=== PATIENT | male | born 1965 | race Caucasian/White ===

== ENCOUNTER 2016-12-05 04:15 | Observation (INO) | payer BC ==
--- NOTE | 2016-12-05 04:25 | Emergency Department Record ---
History of Present Illness - General Chief Complaint: Chest Pain Stated Complaint: chest pain Time Seen by Provider: 12/05/16 04:23 Source: Patient Mode of Arrival: Ambulatory Limitations: No limitations - History of Present Illness Initial Comments: The patient is here due to a 6 hour hx of chest discomfort. The patient describes it as a L chest sharp stabbing pain that lasts seconds and occurs every 10 minutes or so. There is no JAMES, SOB, sweating, or nausea with the pain. He has been having very mild pain over the last 2 weeks and does have a stress test scheduled tomorrow with Dr. Weldon in [place]. He denies any cardiac hx but does have risk factors of HTN and a strong family hx of CAD. MD Complaint: Chest pain Onset/Timin -: Hour(s) Onset: During rest Pain Location: Left chest Pain Radiation: None Severity: Mild Severity scale (1-10): 2 Quality: Sharp Consistency: Intermittent - Related Data Home Medications Medication Instructions Recorded Confirmed Last Taken Amlodipine Besylate/Benazepril 1 each PO DAILY 12/05/16 12/05/16 1 Day Ago [Amlodipine-Benazepril 5-20 mg] Aspirin [Adult Low Dose Aspirin EC] 81 mg PO DAILY 12/05/16 12/05/16 1 Day Ago Atorvastatin Calcium [Lipitor] 20 mg PO DAILY 12/05/16 12/05/16 1 Day Ago Allergies Allergy/AdvReac Type Severity Reaction Status Date / Time No Known Drug Allergies Allergy Verified 12/05/16 04:28 Review of Systems Constitutional: Denies: Chills, Fever Eyes: Denies: Eye discharge ENT: Denies: Congestion Respiratory: Denies: Cough, Dyspnea Cardiovascular: Reports: Chest pain. Denies: Arrhythmia Endocrine: Denies: Fatigue Gastrointestinal: Denies: Diarrhea, Vomiting Genitourinary: Denies: Dysuria Musculoskeletal: Denies: Arthralgia Skin: Denies: Bruising Past Medical History - SOCIAL HISTORY Smoking Status: Never smoker Alcohol Use: None Drug Use: None - RESPIRATORY Hx Respiratory Disorders: No - CARDIOVASCULAR Hx Cardio Disorders: Yes Hx Hypertension: Yes - NEURO Hx Neuro Disorders: No Physical Exam - General General Appearance: Alert, Oriented x3, Cooperative, No acute distress - Head Head exam: Atraumatic, Normocephalic, Normal inspection - Eye Eye exam: Normal appearance, PERRL - ENT Throat exam: Normal inspection. negative: Tonsillar erythema, Tonsillar exudate - Neck Neck exam: Normal inspection, Full ROM. negative: Tenderness - Respiratory Respiratory exam: Normal lung sounds bilaterally. negative: Respiratory distress - Cardiovascular Cardiovascular Exam: Regular rate, Normal rhythm, Normal heart sounds - GI/Abdominal GI/Abdominal exam: Soft, Normal bowel sounds. negative: Tenderness - Extremities Extremities exam: Normal inspection, Full ROM, Normal capillary refill. negative: Tenderness - Neurological Neurological exam: Alert, Normal gait. negative: Abnormal gait, Motor sensory deficit - Psychiatric Psychiatric exam: negative: Anxious, Depressed Course - Reevaluation(s) Reevaluation #1: The patient is doing well. He denies any pain or discomfort at this time. I explained to him that his tests do appear normal but due to his risk factors I do recommend hospital admission and he agrees. We will admit the patient to the hospital here overnight and obtain a cardiology consult tomorrow. 12/05/16 05:55 Medical Decision Making - Data Complexity MDM Data: Labs Ordered and/or Reviewed, X-Ray Ordered and/or Reviewed (CXR: Poor inspiration, O/W neg.), EKG Ordered and/or Reviewed - Lab Data Result diagrams: 12/05/16 04:35 12/05/16 04:35 - EKG Data -: EKG Interpreted by Me EKG: No Acute Changes, Normal EKG Disposition Disposition: Admit Clinical Impression: Chest Pain at Rest Disposition: Still a Patient at [facility] Decision to Admit: Admit from ER Decision to Admit Date: 12/05/16 Decision to Admit Time: 05:56 Accepting Physician: Christel Time Discussed w/Accepting Physician: 05:56 Condition: (2) Stable Time of Disposition: 05:56
[2016-12-05] MEDS ORDERED: ASPIRIN 325 MG TABLET PO ONE (04:38)
[2016-12-05 04:49] LABS: BASO % 0.3 % (0-6); EOS % 1.4 % (0-6); GRAN % 56.2 % (47-80); HEMATOCRIT 44.8 % (42.0-52.0); HEMOGLOBIN 15.3 gm/dl (14.0-18.0); LYMPH % 32.7 % (16-45); MEAN CELL VOLUME 89.8 fl (81-97); MEAN CORPUSCULAR HEMOGLOBIN 30.7 pg (27-33); MEAN CORPUSCULAR HGB CONC 34.2 g/dl (32-36); MEAN PLATELET VOLUME 10.5 fl (7.4-10.4); MONO % 9.4 % (0-9); PLATELET COUNT 297 K/uL (130-400); RED BLOOD COUNT 4.99 M/uL (4.40-5.70); RED CELL DISTRIBUTION WIDTH 12.5 % (11.5-14.5); WHITE BLOOD COUNT W/O DIFF 10.1 K/uL (4.2-12.2)
[2016-12-05 05:04] LABS: ANION GAP 14.7 (7-16); BLOOD UREA NITROGEN 14 mg/dL (9-20); CARBON DIOXIDE 22.3 mmol/L (22-30); CREATINE PHOSPHOKINASE 51 U/L (55-170); CREATININE 0.9 mg/dL (0.66-1.25); EST GLOMERULAR FILTRATION RATE > 60 ml/min; GLUCOSE,RANDOM 106 mg/dL (70-110); INR 0.92; PARTIAL THROMBOPLASTIN TIME 28.4 SECONDS (24.5-39.1); PROTHROMBIN TIME (PATIENT) 10.4 SECONDS (9.5-12.1)
[2016-12-05 05:16] LABS: CKMB 0.5 ug/L (0-6)
[2016-12-05 05:19] LABS: TROPONIN I < 0.012 ng/mL (0.00-0.034)
[2016-12-05] MEDS ORDERED: NITROGLYCERIN 0.4MG SL TABLET #25 BTL SL PRN (06:39)
[2016-12-05] MEDS ORDERED: ACETAMINOPHEN 500 MG TABLET PO PRN (06:39)
--- NOTE | 2016-12-05 07:07 | History & Physical ---
History of Present Illness - Date of Service Date of Service for History & Physical: 12/05/16 - History of Present Illness Admitting Diagnosis: 1. Chest Pain, R/O SD. History of Present Illness: 51 yo male admitted with CC of chest pain. pmhx of HTN, high cholesterol and obesity. chest pain on and off for 2 weeks. described as sharp. location is substeral and epigastric. associated symptoms include belching, acid reflux and bloating. upon presentation, VS's relatively stable. CBC/CMP normal. CE negative x 2. EKG interpreted by ED physician: No acute changes, normal EKG. CXR: poor inspiration, o/w negative. Patient placed on telemetry and admitted for further observation. Patient reports episodes of dizziness two years ago leading to cardiac work up. He follows with Dr. Duque, a [employer] out of [place], [place]. Patient had an abnormal stress test during this work up. I spoke with Dr. Duque's mid level, who states that these abnormalities are being medically managed. Patient has an outpatient stress test with Dr. Duque scheduled for 10 am tomorrow morning. He denies any SOB, cough, diaphoresis, change in bowel or bladder function, weakness, confusion, headache, arm/neck pain, odynophagia or dysphagia. he's never seen a GI doctor. He does not take any gastrointestinal medications. Significant family cardiac history- father w/ SD in his 40's, brother w/ SD in his 50's. Patient with risk factors of HTN, high cholesterol, family history, and obesity. PCP: Jay Jay Daniels, P.A-C Travel Screening - Travel/Exposure Within Last 30 Days Have you traveled within the last 30 days?: No - Travel/Exposure Within Last Year Have you traveled outside the [place] in the last year?: No - Additonal Travel Details Have you been exposed to anyone with a communicable illness?: No - Travel Symptoms Symptom Screening: None Review of Systems Constitutional: Denies: Chills, Fever Eyes: Denies: Eye discharge ENT: Denies: Congestion Respiratory: Denies: Cough, Dyspnea, Wheezes Cardiovascular: Denies: Arrhythmia, Chest pain, Edema Endocrine: Denies: Fatigue Gastrointestinal: Denies: Diarrhea, Vomiting Genitourinary: Denies: Dysuria Musculoskeletal: Denies: Arthralgia Skin: Denies: Bruising Past Medical History - SOCIAL HISTORY Smoking Status: Never smoker Alcohol Use: None Drug Use: None - RESPIRATORY Hx Respiratory Disorders: No - CARDIOVASCULAR Hx Cardio Disorders: Yes Hx Hypertension: Yes - NEURO Hx Neuro Disorders: No - GI Hx Reflux: Yes Comment:: abnormal gas - Hx Genitourinary Disorders: No - ENDOCRINE Hx Diabetes: No Hx Thyroid Disease: No - MUSCULOSKELETAL Hx Musculoskeletal Disorders: No - PSYCH Hx Psych Problems: No - HEMATOLOGY/ONCOLOGY Hx Hematology/Oncology Disorders: No Family Medical History Any Significant Family History?: Yes Hx Heart Disease: Father, Brother/Sister H&P Meds/Allergies - Allergies Allergies: Allergies Allergy/AdvReac Type Severity Reaction Status Date / Time No Known Drug Allergies Allergy Verified 12/05/16 04:28 - Home Medications Home Medications Medication Instructions Recorded Confirmed Last Taken Amlodipine Besylate/Benazepril 1 each PO DAILY 12/05/16 12/05/16 1 Day Ago [Amlodipine-Benazepril 5-20 mg] Aspirin [Adult Low Dose Aspirin EC] 81 mg PO QHS 12/05/16 12/05/16 1 Day Ago Atorvastatin Calcium [Lipitor] 20 mg PO QHS 12/05/16 12/05/16 1 Day Ago - Active Medications Active Medications: Current Medications Acetaminophen (Tylenol 500mg Tab) 500 mg PO Q6H PRN PRN Reason: PAIN/TEMP Aspirin (Ecotrin (Ec)) 325 mg PO DAILY TRINO Atorvastatin Calcium (Lipitor) 20 mg PO DAILY [facility] Nitroglycerin (Nitrostat 0.4mg) 0.4 mg SL Q5MIN PRN PRN Reason: CHEST PAIN Stop: 12/07/16 06:40 Non-Formulary Medication (Amlodipine Besylate/Benazepril [Amlodipine-Benazepril 5-20 Mg]) 1 each PO DAILY [facility] Physical Exam - Vital Signs Vital Signs: Vital Signs - Last 24 Hrs Temp Pulse Resp BP Pulse Ox 12/05/16 06:39 97.5 F L 64 20 132/97 97 - General General Appearance: Alert, Oriented x3, Cooperative, No acute distress Limitations: No limitations - Head Head exam: Atraumatic, Normocephalic, Normal inspection - Eye Eye exam: Normal appearance, PERRL - ENT Throat exam: Normal inspection. negative: Tonsillar erythema, Tonsillar exudate - Neck Neck exam: Normal inspection, Full ROM. negative: Tenderness - Respiratory Respiratory exam: Normal lung sounds bilaterally. negative: Respiratory distress - Cardiovascular Cardiovascular Exam: Regular rate, Normal rhythm, Normal heart sounds - GI/Abdominal GI/Abdominal exam: Soft, Normal bowel sounds. negative: Tenderness - Extremities Extremities exam: Normal inspection, Full ROM, Normal capillary refill. negative: Tenderness - Neurological Neurological exam: Alert, Normal gait. negative: Abnormal gait, Motor sensory deficit - Psychiatric Psychiatric exam: negative: Anxious, Depressed Results - Labs Result Diagrams: 12/05/16 04:35 12/05/16 04:35 VTE H&P Assessment - Risk for VTE Risk for VTE: Yes Risk Level: Low Risk Assessment Date: 12/05/16 Risk Assessment Time: 11:00 VTE Orders Placed or Will Be Placed: No VTE Reason for No Prophylaxis: Not Indicated Plan - Detailed Diagnosis and Plan (1) Chest pain at rest Current Visit: Yes Status: Acute Base Code: R07.9 - CHEST PAIN, UNSPECIFIED Comment: 12/05/16: cardiac vs. gastrointestinal vs. other? -troponin negative x 2. EKG: normal. CXR: poor inspiration, o/w negative. -vital signs stable -continue telemetry -monitor vitals Q4 hours, telemetry and patient's symptoms closely. -will trial Zantac 150 mg 1-2 x daily as needed for acid reflux -I spoke with Dr. Duque's mid level on the phone. She felt that if pts EKG remain's unremarkable and CE's negative x 3, patient should proceed with outpatient stress test as scheduled with Dr. Duque. (2) DVT prophylaxis Current Visit: Yes Status: Acute Base Code: [id number] - Comment: 12/05/16: low risk. patient ambulating the room. will continue to encourage ambulation. (3) Full code status Current Visit: Yes Status: Acute Base Code: Z78.9 - OTHER SPECIFIED HEALTH STATUS Comment: 12/05/16: patient is full code.
[2016-12-05] MEDS ORDERED: AMLODIPINE BESYLATE 5MG TAB PO SCH (10:00)
[2016-12-05] MEDS ORDERED: BENAZEPRIL 20 MG TABLET PO SCH (10:00)
[2016-12-05 10:18] LABS: CKMB 0.4 ug/L (0-6)
[2016-12-05 10:23] LABS: TROPONIN I < 0.012 ng/mL (0.00-0.034)
[2016-12-05] MEDS: RANITIDINE HCL 150 MG TABLET PO SCH ×2 (11:38→21:09)
--- NOTE | 2016-12-05 14:42 | Discharge Summary ---
Providers Discharge Summary Date: 12/05/16 Date of admission: 12/05/16 06:32 Expected Date of Discharge: 12/06/16 Attending physician: MONY MOYA Primary care physician: ROHAN HERNANDEZ Physical Exam - Vital Signs Vital Signs: Vital Signs - Last 24 Hrs Temp Pulse Resp BP Pulse Ox 12/05/16 12:39 97.5 F L 65 18 125/72 96 12/05/16 09:00 66 18 12/05/16 08:40 97.5 F L 66 18 138/73 98 12/05/16 07:16 67 12 12/05/16 06:39 97.5 F L 64 20 132/97 97 - General General Appearance: Alert, Oriented x3, Cooperative, No acute distress Limitations: No limitations - Head Head exam: Atraumatic, Normocephalic, Normal inspection - Eye Eye exam: Normal appearance, PERRL - ENT Throat exam: Normal inspection. negative: Tonsillar erythema, Tonsillar exudate - Neck Neck exam: Normal inspection, Full ROM. negative: Tenderness - Respiratory Respiratory exam: Normal lung sounds bilaterally. negative: Respiratory distress - Cardiovascular Cardiovascular Exam: Regular rate, Normal rhythm, Normal heart sounds - GI/Abdominal GI/Abdominal exam: Soft, Normal bowel sounds. negative: Tenderness - Extremities Extremities exam: Normal inspection, Full ROM, Normal capillary refill. negative: Tenderness - Neurological Neurological exam: Alert, Normal gait. negative: Abnormal gait, Motor sensory deficit - Psychiatric Psychiatric exam: negative: Anxious, Depressed Hospitalization - Hospitalization Admission Diagnosis: 1. Chest Pain, R/O RI. - Problem List/Discharge Diagnosis (1) Chest pain at rest Current Visit: Yes Status: Acute Base Code: R07.9 - CHEST PAIN, UNSPECIFIED Comment: 12/06/16: cardiac vs. gastrointestinal vs. other? -troponin negative x 3. EKG: normal x 2. CXR: poor inspiration, o/w negative. -vital signs stable. labs remain olena. -continue with outpatient stress test at 10 am today -follow up with PCP within 2-3 days of discharge -consider establishing care with [facility]. -continue Zantac 150 mg 1-2 x daily as needed for acid reflux/bloating. -avoid NSAIDs. -return to the ER re any new or worsening symptoms (2) Full code status Current Visit: Yes Status: Acute Base Code: Z78.9 - OTHER SPECIFIED HEALTH STATUS Comment: 12/06/16: patient remained full code - Hospitalization Course Disposition: Home, Self-Care Hospital Course: 51 yo male admitted with CC of chest pain. pmhx of HTN, high cholesterol and obesity. chest pain on and off for 2 weeks. described as sharp. location is substeral and epigastric. associated symptoms include belching, acid reflux and bloating. upon presentation, VS's relatively stable. CBC/CMP normal. CE negative x 2. EKG interpreted by ED physician: No acute changes, normal EKG. CXR: poor inspiration, o/w negative. Patient placed on telemetry and admitted for further observation. Patient reports episodes of dizziness two years ago leading to cardiac work up. He follows with Dr. Duque, a [employer] out of [place], [place]. Patient had an abnormal stress test during this work up. I spoke with Dr. Duque's mid level, who states that these abnormalities are being medically managed. Patient has an outpatient stress test with Dr. Duque scheduled for 10 am tomorrow morning. He denies any SOB, cough, diaphoresis, change in bowel or bladder function, weakness, confusion, headache, arm/neck pain, odynophagia or dysphagia. he's never seen a GI doctor. He does not take any gastrointestinal medications. Significant family cardiac history- father w/ RI in his 40's, brother w/ RI in his 50's. Patient with risk factors of HTN, high cholesterol, family history, and obesity. PCP: Rohan Daniels, PTricia 12/06/16: Condition at Discharge: (2) Stable Discharge Medications - Discharge Medications Prescriptions: Ranitidine HCl [Zantac] 150 mg PO BID #30 tablet Home Medications: Ambulatory Orders Amlodipine Besylate/Benazepril [Amlodipine-Benazepril 5-20 mg] 1 each PO DAILY 12/05/16 [Last Taken 1 Day Ago] Aspirin [Adult Low Dose Aspirin EC] 81 mg PO QHS 12/05/16 [Last Taken 1 Day Ago] Atorvastatin Calcium [Lipitor] 20 mg PO QHS 12/05/16 [Last Taken 1 Day Ago] Ranitidine HCl [Zantac] 150 mg PO BID #30 tablet 12/05/16 [Last Taken Unknown] Discharge Plan - Discharge Instructions Activity at Discharge: Increase Activity as Tolerated Diet at Discharge: Regular Diet Instructions: Ranitidine (By mouth), Cardiac Stress Test (DC), Chest Pain (DC) Additional Instructions: 2 Activity: Increase Activity as Tolerated 2 Diet: Regular Diet 2 Consults: [] 2 Follow Up: []WITH FAMILY DR IN 2-3 DAYS 2 Dressing/Wound Care: (Type) (Change) 2 Additional: [] continue home medications. start taking Zantac 150 mg 1-2 x daily as needed for acid reflux/stomach upset. Zantac was sent to your pharmacy. Avoid NSAIDs (i.e: ibuprofen, aleve, motrin) continue with outpatient stress test at 10 am today follow up with PCP within 2-3 days of discharge consider establishing care with [facility]. return to the ER re any new or worsening symptoms
[2016-12-05 18:29] LABS: CKMB 0.4 ug/L (0-6)
[2016-12-05 18:30] LABS: TROPONIN I < 0.012 ng/mL (0.00-0.034)
[2016-12-05] MEDS ORDERED: ATORVASTATIN 20 MG TABLET PO SCH (22:00)
--- NOTE | 2016-12-06 07:34 | RADIOLOGY REPORT ---
EXAM: CHEST, TWO VIEWS HISTORY: CHEST PAIN. TECHNIQUE: Upright PA and lateral views of the chest were obtained. Comparison: None. FINDINGS: The lung volumes are low. No confluent air space opacity is seen nor is there costophrenic angle blunting or pneumothorax. The heart is not enlarged and the pulmonary vasculature is nondilated. The thoracic aorta is tortuous. IMPRESSION: LOW LUNG VOLUMES. NO EVIDENCE OF ACUTE CARDIOPULMONARY DISEASE. TORTUOUS THORACIC AORTA. JOB NUMBER: [id number] MTDD
[2016-12-06] MEDS ORDERED: ASPIRIN 325 MG TAB ENTERIC-COATED PO SCH (10:00)
== END 2016-12-06 08:38 | disposition home or self-care (01) ==
LOC: ER 04:15 → MEDSURG 06:32
PROVIDERS: ADMIT Family Medicine; ATTEND Family Medicine
DX: R07.9 Chest pain, unspecified (principal); I10 Essential (primary) hypertension; E78.00 Pure hypercholesterolemia, unspecified; Z78.9 Other specified health status
CPT/HCPCS: 71020; 80048; 82550; 82553; 84484; 85025; 85610; 85730; 93005; 93010; 94760; 94761; 99217; 99220; 99285

== ENCOUNTER 2017-09-29 11:31 | Day surgery (SDC) | payer BC ==
[~2017-09-29 11:31] MED LIST: ACETAMINOPHEN 1,000 MG/100 ML BTL IV ONE; FAMOTIDINE 20MG TABLET PO ONE; MECLIZINE 25 MG TABLET PO ONE; METOCLOPRAMIDE 10 MG TABLET PO ONE
[2017-09-29] MEDS ORDERED: LIDOCAINE 2% MDV (20MG/ML) 20ML VIAL IV ONE (11:32)
[2017-09-29] MEDS ORDERED: SEVOFLURANE 250 ML INH ONE (11:32)
[2017-09-29] MEDS ORDERED: BUPIVACAINE 0.75% W/EPI MPF 30ML VIAL IVP ONE (11:32)
[2017-09-29] MEDS ORDERED: KETOROLAC 30 MG/ML VIAL IVP ONE (11:32)
[2017-09-29] MEDS ORDERED: FENTANYL PF 100MCG/2ML VIAL IV ONE (11:32)
[2017-09-29] MEDS ORDERED: ONDANSETRON HCL IV 4 MG/2 ML VIAL IVP ONE (11:32)
[2017-09-29] MEDS ORDERED: DEXAMETHASONE 4 MG/ML 1ML VIAL IVP ONE (11:32)
[2017-09-29] MEDS ORDERED: PROPOFOL 10 MG/ML VIAL IV ONE (11:32)
[2017-09-29] MEDS ORDERED: MIDAZOLAM HCL 2MG/2ML VIAL IV ONE (11:32)
--- NOTE | 2017-09-30 12:30 | Operative Note ---
DATE OF SURGERY: 09/29/2017 Surgeon: Thiago Salazar DO PREOPERATIVE DIAGNOSES: 1. Torn medial meniscus of the left knee. 2. Chondromalacia of the left knee. POSTOPERATIVE DIAGNOSES: 1. Torn medial meniscus, left knee. 2. Medial mid patella plica, left knee. 3. 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 OPERATION: 1. Arthroscopic partial medial meniscectomy, left knee. 2. Arthroscopic resection of medial mid patellar plica, left knee. 3. Arthroscopic chondroplasty of medial femoral condyle, left knee. DESCRIPTION OF PROCEDURE: This 52-year-old male was taken to the operating room and placed in the supine position on the operating room table. A general anesthetic was administered. The left lower extremity was elevated, exsanguinated, and the tourniquet inflated to 300 mmHg. Arthroscopic knee dunbar applied. Left knee prepped with Hibiclens and draped in the usual sterile fashion. An inferolateral portal was established for the 4 mm arthroscope. Initial evaluation of the joint demonstrated normal appearance of the suprapatellar pouch but the patient did have minimal grade 2 chondromalacia of the median ridge of the patella. This was probed through an anteromedial portal and no gross instability was identified. It was no further disturbed. The trochlea, however, appeared normal. A thickened and fibrotic medial mid patella plica was present, and this was resected with a rotating shaver. The medial compartment was entered and at the medial edge of the medial femoral condyle at about the level of the meniscal rest was 1.5 cm area of grade 3 chondromalacia. Utilizing the rotating shaver, we debrided this area to stable articular cartilage. The weightbearing surface of the medial femoral condyle demonstrated a very small area of about less than 0.5 cm with grade 2 change with a little flap tear which was also resected. The medial meniscus demonstrated a degenerative type of tear at approximately the 10-o'clock position. Utilizing the rotating shaver and basket forceps, we cut back to the apex of the tear and then tapered in each direction to leave a stable rim of the medial meniscus. The remainder was probed and found to be normal. The intracondylar notch was examined and found to be normal. The lateral compartment was entered and the patient had somewhat of an unusual shape to the lateral meniscus at its insertion site but there was no tear. The popliteal hiatus appeared normal as did the popliteal tendon. No articular cartilage defects in the lateral compartment were present. However, there were multiple loose cartilaginous bodies present in the lateral compartment which were suctioned from the joint. The joint was then copiously irrigated with lactated Ringer's solution. It was suctioned. The instruments were removed. The portals infiltrated with 0.25% Marcaine with epinephrine. Sterile dressings were applied. The patient was taken to the recovery room in satisfactory condition. GROSS PATHOLOGY: This patient demonstrated a 1 to 1.5 cm lesion in the medial femoral condyle and a very small 0.5 cm lesion on the weightbearing surface of grade 3 chondromalacia. A degenerative tear of the medial meniscus was also present as described above. The patient also demonstrated grade 2 chondromalacia of the patella but it was not grossly unstable and no further disturbed. A medial mid patella plica was present. MTDD
== END 2017-09-29 14:30 | disposition home or self-care (01) ==
LOC: SUR 11:31
PROVIDERS: ATTEND Orthopaedic Surgery
DX: M23.204 Derangement of unspecified medial meniscus due to old tear or injury, left knee (principal); M22.42 Chondromalacia patellae, left knee; M67.52 Plica syndrome, left knee; I10 Essential (primary) hypertension; E78.00 Pure hypercholesterolemia, unspecified
CPT/HCPCS: 29881; 01400; J1885; J2405; J3010; J3490